=== PATIENT | female | born 1965 | race American Indian/Alaskan Native ===

== ENCOUNTER 2017-05-27 09:07 | Outpatient (CLI) | payer OTHER ==
--- NOTE | 2017-05-27 11:49 | Mammography Report ---
BILATERAL DIGITAL SCREENING MAMMOGRAM with CAD: 05/27/17 09:07:00 CLINICAL: Routine screening. COMPARISON:04/01/16 FINDINGS: The breasts are heterogeneously dense, which may obscure small masses. No mass, architectural distortion or suspicious calcifications. IMPRESSION: No mammographic evidence of malignancy. BI-RADS CATEGORY: 1 - - Negative RECOMMENDATION: Routine mammographic screening in one year. COMMENT: Patient follow-up letters are generated by our [employer] application.
== END 2017-05-27 09:08 | disposition home or self-care (01) ==
LOC: SPVWC 09:07
PROVIDERS: ATTEND Obstetrics & Gynecology
DX: Z12.31 Encounter for screening mammogram for malignant neoplasm of breast (principal)
CPT/HCPCS: 77067; G0202

== ENCOUNTER 2017-11-19 09:43 | Outpatient (CLI) | payer OTHER ==
--- NOTE | 2017-11-19 12:27 | Ultrasound Report ---
BILATERAL DIGITAL DIAGNOSTIC MAMMOGRAM with CAD and BILATERAL BREAST ULTRASOUND: 11/19/17 CLINICAL: Bilateral breast pain and a palpable lump in the right axilla. COMPARISON:05/27/17 FINDINGS: The breasts are mostly fatty few bilateral scattered fibroglandular densities.No mass, architectural distortion or suspicious calcifications.No mammographic finding at a palpable marker in the right axilla. Ultrasound of the right breast (including all four quadrants and the retroareolar area) demonstrated normal fibroglandular and fatty structures. No mass, cyst or shadowing. Ultrasound of the right axilla demonstrated normal fat with no mass, cyst or lymphadenopathy at the palpable marker. Ultrasound of the left breast (including all four quadrants and the retroareolar area) demonstrated normal fibroglandular and fatty structures. No mass, cyst or shadowing. IMPRESSION: Normal bilateral mammogram and bilateral breast ultrasound. No explanation for bilateral breast pain. BI-RADS CATEGORY: 1 -- Negative RECOMMENDATION: Clinical followup and routine mammographic screening in one year. COMMENT: Patient follow-up letters are generated by our [employer] application.
== END 2017-11-19 09:44 | disposition home or self-care (01) ==
LOC: SPVWC 09:43
PROVIDERS: ATTEND Obstetrics & Gynecology
DX: N64.4 Mastodynia (principal)
CPT/HCPCS: 76641; G0204; 77066

== ENCOUNTER 2018-02-04 06:18 | Day surgery (SDC) | payer OTHER ==
[2018-02-04] MEDS ORDERED: WATER FOR IRRIG STERILE IR ONE (07:14)
--- NOTE | 2018-02-04 07:32 | Anesthesia Day of Surgery ---
Anesthesia Day of Surgery - Day of Surgery Patient Examined: Yes Patient H&P Reviewed: Yes Patient is NPO: Yes
--- NOTE | 2018-02-04 07:32 | Anesthesia Consultation ---
Anesthesia Consult and Med Hx Date of service: 02/04/18 - Airway Anesthetic Teeth Evaluation: Good, Caps (front right tooth ) ROM Head & Neck: Adequate Mental/Hyoid Distance: Adequate Mallampati Class: Class II Intubation Access Assessment: Probably Good - Pulmonary Exam CTA: Yes - Cardiac Exam Cardiac Exam: RRR - Pre-Operative Health Status ASA Pre-Surgery Classification: ASA3 Proposed Anesthetic Plan: MAC - Cardiovascular System Hx Hypertension: Yes - Central Nervous System CVA: Yes - Hematic Hx Anemia: Yes
[2018-02-04] MEDS ORDERED: DIPRIVAN 10 MG/ML IV ONE ×2 (07:35)
[2018-02-04] MEDS ORDERED: NACL 0.9% 1000 ML 1,000 ML IV SCH (08:00)
--- NOTE | 2018-02-04 08:55 | Short Stay Summary ---
Short Stay Documentation - Allergies and Medications Current Medications: Allergies TPA Adverse Reaction (Uncoded 02/04/18 06:24) Hives Home Medications Medication Instructions Recorded Confirmed Last Taken Type Adult Low Dose Aspirin EC 325 mg PO DAILY 02/03/18 02/04/18 01/21/18 History AtorvaSTATin 40 mg PO DAILY 02/03/18 02/04/18 02/03/18 20:00 History Clonidine HCl 0.1 mg PO PRN PRN 02/03/18 02/03/18 Unknown History Ferrous Sulfate 325 mg PO DAILY 02/03/18 02/03/18 Unknown History Imitrex 50 mg PO PRN PRN 02/03/18 02/03/18 Unknown History Lisinopril 40 mg PO DAILY 02/03/18 02/04/18 02/03/18 History Topamax 25 mg PO DAILY 02/03/18 02/03/18 Unknown History amLODIPine 10 mg PO DAILY 02/03/18 02/04/18 02/03/18 20:00 History Active Medications Sodium Chloride (Nacl 0.9% 1000 Ml) 1,000 mls @ 50 mls/hr IV DIRECT RICHAR Last Admin: 02/04/18 07:54 Dose: 50 mls/hr - Brief post op/procedure progress note Date of procedure: 02/04/18 Pre-op diagnosis: Colon cancer screening Post-op diagnosis: same (1. Colon polyps 2. Internal hemorrhoids) Procedure: Colonoscopy with cold biopsy polypectomy Anesthesia: MAC Findings: as above Surgeon: ELVIN FULLER Estimated blood loss: none Pathology: list (1. Rectosigmoid polyps) Specimen disposition: to lab Condition: stable - Disposition Condition at discharge: Stable Disposition: DC-01 TO HOME OR SELFCARE Short Stay Discharge Plan Activity: no restrictions Weight Bearing Status: Full Weight Bearing Diet: regular, low salt Follow up with: TY AYERS MD [Primary Care Provider] - 7 Days
[2018-02-04 09:02] VITALS: BP 104/58
--- NOTE | 2018-02-04 09:59 | Post Anesthesia Evaluation ---
- Post Anesthesia Evaluation Patient Participated: Yes Airway Patent: Yes Stable Respiratory Function: Yes Nausea/Vomiting: No Temp > 96.8F: Yes Pain Manageable: Yes Adequeate Hydration: Yes Anesthesia Complications: No Block Receding Appropriately: Not Applicable (2030)
== END 2018-02-04 06:19 | disposition home or self-care (01) ==
LOC: GIO 06:18
PROVIDERS: ATTEND Internal Medicine Gastroenterology
DX: Z12.11 Encounter for screening for malignant neoplasm of colon (principal); K63.5 Polyp of colon; K64.8 Other hemorrhoids; I10 Essential (primary) hypertension; Z86.73 Personal history of transient ischemic attack (TIA), and cerebral infarction without residual deficits
CPT/HCPCS: 45380; 81025; 88305; J2704; J7030